=== PATIENT | male | born 1970 | race Caucasian/White ===

== ENCOUNTER 2020-05-17 16:27 | Emergency (ER) | payer SELFPAY ==
[2020-05-17 16:32] VITALS: BP 158/62; PULSE 83; RESP 18; TEMP 36.5; O2SAT 99; BMI 29.7
--- NOTE | 2020-05-17 16:42 | W.ED.EXTPRO ---
HPI - Extremity Problem General: Chief complaint: Extremity Injury, Lower Stated complaint: knee pain Time Seen by Provider: 05/17/20 16:41 History of Present Illness: HPI Narrative: 49 yo male was inflating a tire for a semitruck when the rim broke loose and struck him in the lower leg. Unfortunately he did not have the tire and the safety cage. Earlier in the day had been swinging a sledgehammer and hit his right knee with a sledgehammer. He was able to ambulate and has had a moderate amount of swelling just distal to the knee on the left knee. That was at the point of impact. He was able to ambulate. MD Complaint: extremity pain and extremity swelling Onset (ago): minute(s) Pain Consistency: constant Location: left, right and lower extremity Quality: sharp Radiation: none Relieving factors: nothing Exacerbating factors: nothing Associated symptoms: Reports no associated symptoms; Deny chest pain, fever(s) or rash Review of Systems Const: Denies: fever(s), chills, body aches, change in appetite, fatigue or malaise ENMT: Denies: throat pain, ear or mastoid pain, nasal discharge or nasal congestion Card: Denies: chest pain, edema, dyspnea on exertion or orthopnea Resp: Denies: dyspnea, productive cough or non-productive cough GI: Denies: abdominal pain, nausea, vomiting, hematemesis, coffee ground emesis, diarrhea, constipation, bloating, hematochezia or melena : Denies: flank pain, dysuria, urinary frequency or urinary urgency Skin/Breast: Denies: rash or pruritus PFS ED PFSH: Medical History (Updated 05/17/20 @ 17:59 by Pepe Valdez DO) No significant past medical history Surgical History (Updated 05/17/20 @ 16:50 by Pepe Valdez DO) No significant past surgical history Social History Smoking and tobacco status: current every day smoker Physical Exam Const: COMMON NORMALS: no acute distress GENERAL APPEARANCE: cooperative and comfortable ORIENTATION/CONSCIOUSNESS: Yes awake, Yes oriented to person, Yes oriented to place and Yes oriented to time Neck/C-Spine: COMMON NORMALS: no JVD Resp: COMMON NORMALS: normal respiratory effort, No retractions, No use of accessory muscles and clear to auscultation bilaterally AUSCULTATION: clear to auscultation bilaterally Cardio: COMMON NORMALS: no JVD, regular rate, regular rhythm and No murmurs present (Cardio) RATE: regular rate RHYTHM: regular rhythm GI: COMMON NORMALS: Soft to palpation and No hepatosplenomegaly present AUSCULTATION: Yes normoactive bowel sounds PALPATION: Yes Soft to palpation, No Tenderness to palpation present (GI), No Guarding due to palpation present (GI) and Yes No hepatosplenomegaly present Extremity: COMMON NORMALS: normal to inspection, capillary refill normal, no clubbing, cyanosis or edema, no calf tenderness and no pedal edema Neuro: SENSORIUM/ORIENTATION: Yes oriented to person, Yes oriented to place and Yes oriented to time Skin: COMMON NORMALS: no rashes or lesions noted GENERAL SKIN EXAM: no rashes or lesions noted Course Vital Signs: Vital signs: Vital Signs Temperature 97.7 F 05/17/20 16:32 Pulse Rate 85 05/17/20 18:39 Respiratory Rate 17 05/17/20 18:39 Blood Pressure 158/62 05/17/20 16:32 Pulse Oximetry 95 05/17/20 18:39 MDM - Extremity (Nontraumatic) MDM Narrative: Medical decision making narrative: X-rays negative. On passive range of motion he has no significant pain his is present in the room I demonstrated to both of them how to test for passive range of motion. Instructed then admit they should check this every few hours if he has any significant pain with passive range of motion he needs to return to the emergency room immediately discussed with him what the compartment syndrome was in the urgency of having it addressed if he develops it. He can use the pain medicines but should use them sparingly. Lab Data: Labs: Lab Results 05/17/20 Range/Units 17:46 Sodium 139 (136-145) mmol/L Potassium 4.1 (3.5-5.1) mmol/L Chloride 105 (98-107) mmol/L Carbon Dioxide 21 L (22-29) mmol/L Anion Gap 17.1 (5-19) BUN 17 (6-20) mg/dL Creatinine 1.1 (0.7-1.2) mg/dL GFR Calculation 71.4 L (90-130) mL/min Glucose 89 (65-115) mg/dL Calculated Osmolal ity 284 L (285-295) mOsm/k g Calcium 9.5 (8.5-10.5) mg/dL Discharge Plan Discharge Patient Disposition: Home, Self-Care Clinical Impression: Injury of lower leg, left Condition: Stable Prescriptions: New hydrocodone-acetaminophen 5-325 mg tablet 1 tab PO Q6H PRN (Reason: pain) Qty: 15 RF: 0 No Action No Known Home Medications RF: 0 Discharge Orders: Discharge Order (Routine); Ordered 05/17/20 Ordered By: Pepe Valdez Referrals: Qi Martin, [facility]IST[facility]C [Primary Care Provider] - Discharge Diet: Usual diet Discharge Activity: Limit activity as instructed Activity Restrictions/Additional Instructions: If you develop excessive pain with passive range of motion in your left leg return to the emergency room immediately. Discharge Date/Time: 05/17/20 18:40 Coding Level of Care Code ED Telephone Diaphragm Assembler for Lillian Fwgino Exam Detailed
--- NOTE | 2020-05-17 16:52 | XRR_ITS ---
PROCEDURE INFORMATION: Exam: XR Left Tibia and Fibula Exam date and time: 05/17/2020 5:20 PM Age: 49 years old Clinical indication: Pain; Lower leg; Bilateral; Additional info: Trauma TECHNIQUE: Imaging protocol: XR Left tibia and fibula. Views: 2 views. COMPARISON: No relevant prior studies available. FINDINGS: Bones/joints: No acute findings. Mild focal chronic appearing solid periosteal bone formation along posterior-lateral portions of proximal tibial and fibular shafts. Soft tissues: Normal. XR/XR tibia fibula LT 2V [id number] IMPRESSION: No acute findings.
--- NOTE | 2020-05-17 16:52 | XRR_ITS ---
PROCEDURE INFORMATION: Exam: XR Right Tibia and Fibula Exam date and time: 05/17/2020 5:20 PM Age: 49 years old Clinical indication: Pain; Lower leg; Bilateral; Additional info: Trauma TECHNIQUE: Imaging protocol: XR Right tibia and fibula. Views: 2 views. COMPARISON: No relevant prior studies available. FINDINGS: Bones/joints: Normal. Soft tissues: Normal. XR/XR tibia fibula RT 2V [id number] IMPRESSION: No acute findings.
[2020-05-17] MEDS: morphine 4 mg/mL SDV 1 mL IVP (18:20)
[2020-05-17] MEDS: ondansetron 2 mg/ML SDV 2 mL 4 MG IVP (18:21)
[2020-05-17 18:24] LABS: Anion Gap 17.1 (5-19); Blood Urea Nitrogen 17 mg/dL (6-20); Calcium 9.5 mg/dL (8.5-10.5); Carbon Dioxide 21 mmol/L (22-29); Chloride 105 mmol/L (98-107); Glomerular Filtration Rate 71.4 mL/min (90-130); Glucose 89 mg/dL (65-115); Osmolality Calculated 284 mOsm/kg (285-295); Potassium 4.1 mmol/L (3.5-5.1); Sodium 139 mmol/L (136-145)
[2020-05-17 18:39] VITALS: PULSE 85; RESP 17; O2SAT 95
== END 2020-05-17 18:40 | disposition home or self-care (01) ==
PROVIDERS: Emergency Provider Family Medicine; PCP Nurse Practitioner
DX: M25.561 Pain in right knee (principal); F17.210 Nicotine dependence, cigarettes, uncomplicated
CPT/HCPCS: 12345; 36415; 73590; 80048; 85025; 96374; 96375; 99281; 99283; J2270; J2405

== ENCOUNTER → 2021-08-17 13:02 | Outpatient (BNVA) | payer MEDICAID, SELFPAY | PROVIDERS: PCP Nurse Practitioner; Visit Provider Nurse Practitioner Family | DX: Z20.822 Contact with and (suspected) exposure to COVID-19 (principal); J01.40 Acute pansinusitis, unspecified; J30.89 Other allergic rhinitis | CPT/HCPCS: 87635 ==

== ENCOUNTER → 2021-12-08 10:59 | Outpatient (BNVA) | payer MEDICAID, SELFPAY | PROVIDERS: PCP Nurse Practitioner; Visit Provider Nurse Practitioner Family | DX: Z20.822 Contact with and (suspected) exposure to COVID-19 (principal); R50.9 Fever, unspecified; J45.30 Mild persistent asthma, uncomplicated | CPT/HCPCS: 87635 ==

== ENCOUNTER → 2023-03-28 16:31 | Outpatient (BNVA) | payer MEDICAID, SELFPAY | PROVIDERS: PCP Nurse Practitioner; Visit Provider Nurse Practitioner | DX: Z13.6 Encounter for screening for cardiovascular disorders (principal); Z12.5 Encounter for screening for malignant neoplasm of prostate | CPT/HCPCS: 80053; 80061; 85025; G0103 ==